=== PATIENT | female | born 1955 | race African-American/Black ===

== ENCOUNTER 2022-09-10 18:49 | Inpatient (IN) | payer MEDICARE, OTHER ==
[2022-09-10] MEDS ORDERED: Lorazepam 2 MG/ML VIAL ONE (19:10)
[2022-09-10] MEDS ORDERED: levETIRAcetam 500 MG/5 ML VIAL ONE (19:13)
[2022-09-10 19:27] LABS: #Basophils 0.1 10x3/uL (0.0-0.2); #Monocytes 0.5 10x3/uL (0.0-1.1); #Neutrophils 3.1 10x3/uL (1.5-8.4); %Basophils 0.9 % (0.0-2.0); %Eosinophils 0.6 % (0.0-6.0); %Lymphocytes 42.2 % (18.0-47.0); %Monocytes 7.1 % (0.0-10.0); Hemoglobin 12.4 g/dL (12.0-15.5); Mean Corpuscular HGB CONC 33.6 g/dL (32.0-36.0); Mean Corpuscular Hemoglobin 31.4 pg (27.0-33.0); Mean Corpuscular Volume 93.4 fl (81.6-98.3); Mean Platelet Volume 10.4 fl (7.4-10.4); Platelet Count 221 10x3/uL (150-450); RBC Distribution Width 12.3 % (11.5-14.5); Red Blood Cell (RBC) Count 3.95 10x6/uL (3.90-5.03); White Blood Cell (WBC) Count 6.4 10x3/uL (3.5-10.5)
[2022-09-10 19:38] LABS: ALT (SGPT) 11 U/L (8-55); AST (SGOT) 18 U/L (5-34); Albumin 3.6 g/dL (3.4-4.8); Alkaline Phosphatase 50 U/L (40-110); Anion Gap 15 mmol/L (10-20); BUN (Urea Nitrogen) 7 mg/dL (9.8-20.1); Bilirubin, Total 0.7 mg/dL (0.2-1.2); CK (CPK) 33 U/L (29-168); Calc. Creatinine Clearance 0 mL/min (70-130); Calcium 9.4 mg/dL (7.8-10.44); Carbon Dioxide 23 mmol/L (23-31); Chloride 108 mmol/L (98-107); Estimated GFR 96; Globulin 2.6 g/dL (2.4-3.5); Glucose 103 mg/dL (80-115); Potassium 3.4 mmol/L (3.5-5.1); Protein, Total 6.2 g/dL (5.8-8.1); Sodium 143 mmol/L (136-145)
[2022-09-10 20:07] LABS: Bilirubin 1+ (Negative); Blood, Urine 10 (Negative); Clarity Slightly Cloudy (Clear); Glucose, Urine (Dipstick) Normal (Negative); Ketone, Urine Negative (Negative); Leukocyte 500 (Negative); Nitrite Positive (Negative); Protein, Urine (Dipstick) 30 mg/dl (Neg-Trace); Specific Gravity, Urine 1.025 (1.005-1.030)
[2022-09-10 20:20] LABS: Bacteria/HPF 4+ HPF (None Seen); CAUTI Indications for Culture Alt mental st,lethar; RBC/HPF 0-3 HPF (0-3); Squamous Epithelial 0-3 HPF (0-3)
[2022-09-10 20:21] LABS: Urine Culture Reflex Yes Yes
[2022-09-10] MEDS ORDERED: Glucagon 1 MG/ML KIT IM PRN (21:35)
[2022-09-10] MEDS ORDERED: Dextrose 5% in Water 1,000 ML IV PRN (21:35)
[2022-09-10] MEDS ORDERED: Senokot S 8.6-50 MG TAB PO PRN (21:35)
[2022-09-10] MEDS ORDERED: Dextrose 50% Abboject 50 ML SYRINGE SLOW IVP PRN (21:35)
[2022-09-10] MEDS ORDERED: Calcium Carbonate 500 MG ChewTAB PO PRN (21:35)
[2022-09-10] MEDS ORDERED: Ondansetron PF 4 MG/2 ML Vial IVP PRN (21:35)
[2022-09-10] MEDS ORDERED: Lorazepam 2 MG/ML VIAL SLOW IVP PRN (21:37)
[2022-09-10] MEDS ORDERED: cefTRIAXone (ROCEPHIN) 2 GM VIAL ONE (22:05)
[2022-09-10 23:22] VITALS: BMI 27.3
[2022-09-10] MEDS: Potassium Chloride 20 MEQ in Premix Bag 1 BAG IVPB SCH (23:32)
[2022-09-10] MEDS ORDERED: Lactated Ringer's 1,000 ML IV SCH (23:59)
[2022-09-10] MEDS ORDERED: Pantoprazole 40 MG VIAL IVP SCH (23:59)
[2022-09-11] MEDS: Acetaminophen 325 MG TAB PO PRN ×2 (00:47→23:58)
[2022-09-11] MEDS ORDERED: Potassium Chloride 20 MEQ TAB PO SCH (01:30)
[2022-09-11] MEDS: Potassium Chloride 20 MEQ in Premix Bag 1 BAG IVPB SCH (01:34)
[2022-09-11 05:16] LABS: Anion Gap 16 mmol/L (10-20); BUN (Urea Nitrogen) 8 mg/dL (9.8-20.1); CK (CPK) 54 U/L (29-168); Calc. Creatinine Clearance 91 mL/min (70-130); Calcium 9.1 mg/dL (7.8-10.44); Carbon Dioxide 23 mmol/L (23-31); Chloride 109 mmol/L (98-107); Estimated GFR 96; Glucose 134 mg/dL (80-115); Magnesium 1.8 mg/dL (1.6-2.6); Phosphorus 2.9 mg/dL (2.3-4.7); Potassium 3.7 mmol/L (3.5-5.1); Sodium 144 mmol/L (136-145)
[2022-09-11] MEDS ORDERED: Magnesium Sulfate/D5W 1 GM/100 ML BAG IVPB SCH (06:15)
[2022-09-11] MEDS: Clopidogrel Bisulfate 75 MG TAB PO SCH (08:27)
[2022-09-11] MEDS: Thiamine 100 MG TAB PO SCH (08:27)
[2022-09-11] MEDS: Losartan Potassium 50 MG TAB PO SCH (08:27)
[2022-09-11] MEDS: Aspirin 81 mg Enteric Coated Tablet PO SCH (08:27)
[2022-09-11] MEDS ORDERED: levETIRAcetam 500 MG/5 ML VIAL SLOW IVP SCH (09:00)
[2022-09-11] MEDS ORDERED: levETIRAcetam in NS 1,000 MG in Premix Bag 1 BAG IVPB SCH (09:00)
[2022-09-11] MEDS: Lactated Ringer's 1,000 ML IV SCH (13:38)
[2022-09-11] MEDS ORDERED: OCTAGAM 10% (10 GM/100 ML VIAL) IVPB SCH (14:15)
[2022-09-11] MEDS: cefTRIAXone\\ROCEPHIN 1 GM in Sodium Chloride 0.9% 100 ML IVPB SCH (17:58)
[2022-09-11] MEDS: levETIRAcetam 500 MG TAB PO SCH (20:34)
[2022-09-11] MEDS: Lacosamide 50 mg Tablet PO SCH (20:34)
[2022-09-12 05:12] LABS: #Basophils 0.1 10x3/uL (0.0-0.2); #Eosinphils 0.1 10x3/uL (0.0-0.5); #Monocytes 0.5 10x3/uL (0.0-1.1); #Neutrophils 3.3 10x3/uL (1.5-8.4); %Basophils 0.9 % (0.0-2.0); %Eosinophils 1.1 % (0.0-6.0); %Lymphocytes 40.7 % (18.0-47.0); %Monocytes 7.1 % (0.0-10.0); Hemoglobin 13.5 g/dL (12.0-15.5); Mean Corpuscular HGB CONC 33.3 g/dL (32.0-36.0); Mean Corpuscular Hemoglobin 31.3 pg (27.0-33.0); Mean Platelet Volume 10.3 fl (7.4-10.4); Platelet Count 212 10x3/uL (150-450); RBC Distribution Width 11.9 % (11.5-14.5); Red Blood Cell (RBC) Count 4.32 10x6/uL (3.90-5.03); White Blood Cell (WBC) Count 6.6 10x3/uL (3.5-10.5)
[2022-09-12 05:20] LABS: Anion Gap 16 mmol/L (10-20); BUN (Urea Nitrogen) 7 mg/dL (9.8-20.1); Calc. Creatinine Clearance 86 mL/min (70-130); Calcium 9.8 mg/dL (7.8-10.44); Carbon Dioxide 25 mmol/L (23-31); Chloride 104 mmol/L (98-107); Estimated GFR 95; Glucose 114 mg/dL (80-115); Potassium 3.7 mmol/L (3.5-5.1); Sodium 141 mmol/L (136-145)
[2022-09-12] MEDS: Losartan Potassium 50 MG TAB PO SCH (07:05)
[2022-09-12] MEDS: Clopidogrel Bisulfate 75 MG TAB PO SCH (10:41)
[2022-09-12] MEDS: Thiamine 100 MG TAB PO SCH (10:41)
[2022-09-12] MEDS: levETIRAcetam 500 MG TAB PO SCH ×2 (10:42→21:04)
[2022-09-12] MEDS: Lacosamide 50 mg Tablet PO SCH ×2 (10:43→21:05)
[2022-09-12] MEDS: Aspirin 81 mg Enteric Coated Tablet PO SCH (10:43)
[2022-09-12] MEDS: Lactated Ringer's 1,000 ML IV SCH (12:31)
[2022-09-12] MEDS: cefTRIAXone\\ROCEPHIN 1 GM in Sodium Chloride 0.9% 100 ML IVPB SCH (17:45)
[2022-09-12] MEDS ORDERED: cefTRIAXone (ROCEPHIN) 1 GM VIAL ONE (20:34)
[2022-09-13 05:37] LABS: #Basophils 0.1 10x3/uL (0.0-0.2); #Eosinphils 0.1 10x3/uL (0.0-0.5); #Monocytes 0.6 10x3/uL (0.0-1.1); #Neutrophils 3.7 10x3/uL (1.5-8.4); %Basophils 0.7 % (0.0-2.0); %Eosinophils 0.9 % (0.0-6.0); %Lymphocytes 39.9 % (18.0-47.0); %Monocytes 8.3 % (0.0-10.0); %Neutrophils 49.9 % (40.0-75.0); Anion Gap 16 mmol/L (10-20); BUN (Urea Nitrogen) 6 mg/dL (9.8-20.1); Calc. Creatinine Clearance 87 mL/min (70-130); Calcium 9.7 mg/dL (7.8-10.44); Carbon Dioxide 25 mmol/L (23-31); Chloride 106 mmol/L (98-107); Estimated GFR 95; Glucose 108 mg/dL (80-115); Hemoglobin 13.2 g/dL (12.0-15.5); Mean Corpuscular HGB CONC 33.4 g/dL (32.0-36.0); Mean Corpuscular Hemoglobin 31.2 pg (27.0-33.0); Mean Corpuscular Volume 93.4 fl (81.6-98.3); Mean Platelet Volume 10.4 fl (7.4-10.4); Platelet Count 234 10x3/uL (150-450); Potassium 3.6 mmol/L (3.5-5.1); RBC Distribution Width 11.9 % (11.5-14.5); Red Blood Cell (RBC) Count 4.23 10x6/uL (3.90-5.03); Sodium 143 mmol/L (136-145); White Blood Cell (WBC) Count 7.5 10x3/uL (3.5-10.5)
[2022-09-13] MEDS ORDERED: Aspirin 81 mg Enteric Coated Tablet ONE (09:45)
[2022-09-13] MEDS: levETIRAcetam 500 MG TAB PO SCH (09:54)
[2022-09-13] MEDS: Aspirin 81 mg Enteric Coated Tablet PO SCH (09:54)
[2022-09-13] MEDS: Thiamine 100 MG TAB PO SCH (09:54)
[2022-09-13] MEDS: Clopidogrel Bisulfate 75 MG TAB PO SCH (09:55)
[2022-09-13] MEDS: Losartan Potassium 50 MG TAB PO SCH (09:55)
[2022-09-13] MEDS: Lacosamide 50 mg Tablet PO SCH (09:56)
[2022-09-13 18:42] VITALS: BP 171/75; TEMP 99.2
[2022-09-13] MEDS ORDERED: Ciprofloxacin 500 MG TAB PO SCH (20:00)
== END 2022-09-13 18:00 | DRG 689 ==
LOC: CSHERS 18:49 → CSHTELE 21:35 → OBSVTOIN 09-11 11:20
PROVIDERS: ADMIT Student in an Organized Health Care Education/Training Program; ATTEND Hospitalist
DX: N39.0 Urinary tract infection, site not specified (principal); G93.41 Metabolic encephalopathy; I69.351 Hemiplegia and hemiparesis following cerebral infarction affecting right dominant side; R47.01 Aphasia; G40.201 Localization-related (focal) (partial) symptomatic epilepsy and epileptic syndromes with complex partial seizures, not intractable, with status epilepticus; I25.10 Atherosclerotic heart disease of native coronary artery without angina pectoris; I73.9 Peripheral vascular disease, unspecified; I10 Essential (primary) hypertension; F41.9 Anxiety disorder, unspecified; F01.50 Vascular dementia, unspecified severity, without behavioral disturbance, psychotic disturbance, mood disturbance, and anxiety; B96.1 Klebsiella pneumoniae [K. pneumoniae] as the cause of diseases classified elsewhere; Z66 Do not resuscitate; E78.5 Hyperlipidemia, unspecified; K21.9 Gastro-esophageal reflux disease without esophagitis; E87.6 Hypokalemia; G30.9 Alzheimer's disease, unspecified; F02.80 Dementia in other diseases classified elsewhere, unspecified severity, without behavioral disturbance, psychotic disturbance, mood disturbance, and anxiety; Z79.82 Long term (current) use of aspirin; Z79.899 Other long term (current) drug therapy; Z79.02 Long term (current) use of antithrombotics/antiplatelets
CPT/HCPCS: 36415; 36416; 70450; 80048; 80053; 81001; 82550; 83605; 83735; 84100; 85025; 87077; 87086; 87186; 93005; 95816; 95819; 95957; 96372; 96375; 96376; C9113; G0378; J0696; J1650; J1953; J2060; J3475; J3480; J3490; J7120